=== PATIENT | female | born 1945 | race Caucasian/White ===

== ENCOUNTER 2022-12-06 15:59 | Emergency (ER) | payer BC ==
[~2022-12-06] VITALS: Ht 170.2 cm; Wt 72.6 kg
--- NOTE | 2022-12-06 16:53 | NUR ---
Patient discharged to home in stable condition. Written and verbal after care instructions given. Patient verbalizes understanding of instructions. Stressed follow up or return to ER for worsening s/s.
[2022-12-06 16:54] VITALS: BP 122/71
== END 2022-12-06 16:54 | disposition home or self-care (01) ==
LOC: ER 16:12
DX: S61.412D Laceration without foreign body of left hand, subsequent encounter (principal); W19.XXXD Unspecified fall, subsequent encounter; Z85.840 Personal history of malignant neoplasm of eye
CPT/HCPCS: A4663

== ENCOUNTER 2025-05-22 22:25 | Emergency (ER) | payer BC ==
[~2025-05-22] VITALS: Ht 170.2 cm; Wt 63.5 kg
[2025-05-23 00:23] VITALS: BP 124/72; TEMP 98; O2SAT 99
== END 2025-05-23 00:20 | disposition home or self-care (01) ==
LOC: ER 22:31
DX: S61.012A Laceration without foreign body of left thumb without damage to nail, initial encounter (principal); Z88.7 Allergy status to serum and vaccine; W23.2XXA Caught, crushed, jammed or pinched between a moving and stationary object, initial encounter; Y93.89 Activity, other specified; Y92.89 Other specified places as the place of occurrence of the external cause; Y99.8 Other external cause status
CPT/HCPCS: 73130; A4606; A4663